=== PATIENT | male | born 1990 | race Asian ===

== ENCOUNTER 2022-02-06 04:34 | Emergency (ER) | payer OTHER, SELFPAY ==
[2022-02-06 05:39] VITALS: BP 140/86; PULSE 88; RESP 17; TEMP 36.8; O2SAT 99; BMI 33.4
--- NOTE | 2022-02-06 11:04 | PC.NURSE ---
ATTEMPTED TO CALL PATIENT INTO ED, NO ANSWER IN WAITING ROOM
--- NOTE | 2022-02-06 11:51 | PC.NURSE ---
SECOND CALL, NO ANSWER IN WAITING ROOM
== END 2022-02-06 11:04 | disposition left against medical advice (07) ==
PROVIDERS: Emergency Provider Emergency Medicine
DX: K59.00 Constipation, unspecified (principal)
CPT/HCPCS: 99281

== ENCOUNTER 2023-02-22 02:08 | Emergency (ER) | payer OTHER, SELFPAY ==
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
[2023-02-22 02:14] VITALS: BP 125/74; PULSE 68; RESP 12; O2SAT 98; BMI 78.3
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
--- NOTE | 2023-02-22 02:22 | PC.NURSE ---
notified PHUC Husain, of pt in room 4
[2023-02-22 02:24] VITALS: RESP 20
[2023-02-22] MEDS: Morphine Sulfate 4 MG/ML CARTRIDGE IVPUSH (02:24)
[2023-02-22] MEDS: 0.9 % Sodium Chloride 1,000 ML 999 ML IVCONT (02:26)
[2023-02-22] MEDS: cefEPime HCl 1 GM in 0.9 % Sodium Chloride 50 ML IV (02:27)
[2023-02-22 02:46] LABS: MANUAL DIFF FLAG NO
[2023-02-22 02:47] LABS: Basophils Absolute Auto 0.1 X10*3/uL (0.0-0.2); Basophils Percent Auto 0.8 % (0-2); Eosinophils Absolute Auto 0.3 X10*3/uL (0.0-0.4); Eosinophils Percent Auto 2.9 % (0-4); Hematocrit 44.2 % (42.0-52.0); Hemoglobin 14.9 g/dl (14.0-18.0); Imm Gran Abs Auto 0.03 X10*3/uL (0.00-0.03); Imm Gran Pct Auto 0.3 % (0.0-0.4); Lymphocytes Percent Auto 44.8 % (20-40); Mean Corpuscular HGB Conc 33.7 g/dl (31.0-36.0); Mean Corpuscular Hemoglobin 29.4 pg (27.0-33.0); Mean Corpuscular Volume 87.2 fL (80.0-98.0); Mean Platelet Volume 9.3 fL (9.4-12.4); Neutrophils Absolute Auto 4.7 x10*3/uL (2.0-8.3); Neutrophils Percent Auto 42.2 % (45-73); Platelet Count 236 X10*3/uL (160-400); Red Blood Count 5.07 X10*6/uL (4.60-5.80); Red Cell Distribution Width 12.2 % (11.0-16.0); White Blood Count 11.1 X10*3/uL (4.8-10.8)
[2023-02-22 02:58] LABS: Anion Gap 14 (12-20); Blood Urea Nitrogen 14 mg/dL (9-16); Calcium 9.3 mg/dL (8.4-10.2); Carbon Dioxide 25 mmol/L (22-29); Chloride 104 mmol/L (96-108); Creatinine Clr Calc Pharmacy 246.9; Estimated Glomerular Filt Rate > 60; Glucose Random 135 mg/dL (60-115); Potassium 3.6 mmol/L (3.3-5.1); Sodium 139 mmol/L (135-145)
--- NOTE | 2023-02-22 03:41 | PC.NURSE ---
Pt requesting something to drink Pt placed on npo per provider Stephen. This RN advised that he could not have anything to drink or eat d/t surgery in the morning. Pt states well that makes no fucking sense. Plan of care ongoing.
== END 2023-02-22 03:54 | disposition left against medical advice (07) ==
PROVIDERS: Emergency Provider Emergency Medicine
DX: S61.431A Puncture wound without foreign body of right hand, initial encounter (principal); M79.641 Pain in right hand; W32.0XXA Accidental handgun discharge, initial encounter; Y93.9 Activity, unspecified; Y92.9 Unspecified place or not applicable; Y99.9 Unspecified external cause status; Z79.899 Other long term (current) drug therapy
CPT/HCPCS: 26720; 36415; 73130; 80048; 85025; 93005; 96374; 96375; 99284; J0692; J2270

== ENCOUNTER 2023-02-22 11:08 | Outpatient (AMB) | payer OTHER, SELFPAY ==
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
== END 2023-02-22 12:21 | disposition home or self-care (01) ==
PROVIDERS: Visit Provider Physician Assistant
DX: S62.511A Displaced fracture of proximal phalanx of right thumb, initial encounter for closed fracture (principal); S61.031A Puncture wound without foreign body of right thumb without damage to nail, initial encounter; W34.00XA Accidental discharge from unspecified firearms or gun, initial encounter
CPT/HCPCS: 26720; 99204

== ENCOUNTER 2023-02-25 10:23 | Day surgery (SDC) | payer OTHER, SELFPAY ==
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
--- NOTE | ~2023-02-25 | FL_ITS ---
EXAMINATION: XR FLUOROSCOPY WITH IMAGES CLINICAL INFORMATION: Foreign body in finger. COMPARISON: Previous right hand x-ray 02/22/2023 TECHNIQUE: Fluoroscopy Supervised By: Dr. Cesia Hawk. Fluoroscopy Time: 88.76 seconds. Cumulative Dose: 2.2212 mGy. DAP: 0.1342 Gycm2. Images: 8. FINDINGS: Fluoroscopy guidance provided for ORIF of comminuted fracture of the proximal phalanx of the thumb. Images demonstrate 3 K wires or pins with improved alignment. Multiple soft tissue foreign bodies. FL/FL guidance in OR IMPRESSION: Fluoroscopy guidance for ORIF of proximal phalanx fracture of the right thumb
--- NOTE | 2023-02-25 10:30 | PC.NURSE ---
Addendum entered by Yazmin Freire RN 02/25/23 10:39: patient admitted to using heroin 3hrs ago. Dr. Hawk and Dr. Hernandez aware. Original Note: patient stating I am not feeling well vomiting and diarrhea episodes x3 prior to arrival. patient drank about 4oz apple juice about 1hr ago . Dr. Hawk aware and will come to bedside to speak with patient.
[2023-02-25 10:35] VITALS: BMI 33.4
[2023-02-25 11:32] LABS: Amphetamine Screen Urine Not Detected (Not Detect); Barbiturates, Urine Not Detected (Not Detect); Benzodiazepines Screen Urine Not Detected (Not Detect); Cannabinoid Screen Urine Not Detected (Not Detect); Cocaine Screen Urine Not Detected (Not Detect); Fentanyl, urine POSITIVE (Not Detect); Opiate Screen Urine POSITIVE (Not Detect); Phencyclidine Screen Urine Not Detected (Not Detect)
[2023-02-25 12:03] VITALS: BP 151/74; PULSE 101; RESP 16; TEMP 36.7; O2SAT 98
[2023-02-25] MEDS: Lactated Ringers 1,000 ML 100 ML IVCONT (12:05)
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
[2023-02-25 15:26] VITALS: BP 129/82; PULSE 97; RESP 18; TEMP 37.6; O2SAT 92
[2023-02-25 15:31] VITALS: BP 114/86; PULSE 90; RESP 18; O2SAT 95
[2023-02-25 15:36] VITALS: BP 126/84; PULSE 77; RESP 18; O2SAT 97
[2023-02-25 15:41] VITALS: BP 151/93; PULSE 82; RESP 18; O2SAT 97
[2023-02-25 15:56] VITALS: BP 166/89; PULSE 89; RESP 18; TEMP 37.2; O2SAT 98
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
== END 2023-02-25 16:13 | disposition home or self-care (01) ==
PROVIDERS: Anesthesiology; Visit Provider Orthopaedic Surgery
PROC: (CPT 26735; principal; 2023-02-25 11:40)
PROC: (CPT 26735; 2023-02-25 11:40)
DX: S62.511B Displaced fracture of proximal phalanx of right thumb, initial encounter for open fracture (principal); W32.0XXA Accidental handgun discharge, initial encounter; Y93.9 Activity, unspecified; Y92.9 Unspecified place or not applicable; Y99.8 Other external cause status; B19.20 Unspecified viral hepatitis C without hepatic coma; I10 Essential (primary) hypertension; R00.2 Palpitations; F11.10 Opioid abuse, uncomplicated; F17.210 Nicotine dependence, cigarettes, uncomplicated
CPT/HCPCS: 26735; 11010; 64450; 80307; J0330; J0690; J1170; J2250; J2765; J2795; J3010

== ENCOUNTER → 2023-02-25 10:23 | Outpatient (BNV) | payer OTHER, SELFPAY | PROVIDERS: Visit Provider Orthopaedic Surgery | DX: S62.511B Displaced fracture of proximal phalanx of right thumb, initial encounter for open fracture (principal); S60.351A Superficial foreign body of right thumb, initial encounter | CPT/HCPCS: 11010; 26735 ==

== ENCOUNTER 2023-03-02 11:16 | Outpatient (REF) | payer OTHER, SELFPAY ==
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
== END 2023-03-02 11:17 | disposition home or self-care (01) ==
LOC: HO.HOSX 11:16
PROVIDERS: Visit Provider Orthopaedic Surgery
DX: M79.641 Pain in right hand (principal)
CPT/HCPCS: 73130

== ENCOUNTER 2023-03-03 13:11 | Outpatient (AMB) | payer OTHER, SELFPAY ==
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
== END 2023-03-03 14:17 | disposition home or self-care (01) ==
PROVIDERS: Visit Provider Orthopaedic Surgery
DX: S62.511B Displaced fracture of proximal phalanx of right thumb, initial encounter for open fracture (principal); S62.501A Fracture of unspecified phalanx of right thumb, initial encounter for closed fracture
CPT/HCPCS: 99024

== ENCOUNTER → 2023-03-03 13:11 | Outpatient (BNVA) | payer OTHER, SELFPAY | PROVIDERS: Visit Provider Orthopaedic Surgery ==

== ENCOUNTER 2023-03-08 12:52 | Outpatient (REF) | payer OTHER, SELFPAY | END 2023-03-08 12:53 | disposition home or self-care (01) | LOC: HO.HOSX 12:52 | PROVIDERS: Visit Provider Physician Assistant | DX: Z13.89 Encounter for screening for other disorder (principal) ==

== ENCOUNTER 2023-03-10 12:20 | Outpatient (REF) | payer OTHER, SELFPAY | END 2023-03-10 12:21 | disposition home or self-care (01) | LOC: HO.HOSX 12:20 | PROVIDERS: Visit Provider Physician Assistant | DX: Z13.89 Encounter for screening for other disorder (principal) ==

== ENCOUNTER 2023-03-12 07:47 | Outpatient (REF) | payer OTHER, SELFPAY | END 2023-03-12 07:48 | disposition home or self-care (01) | LOC: HO.HOSX 07:47 | PROVIDERS: Visit Provider Physician Assistant | DX: Z13.89 Encounter for screening for other disorder (principal) ==

== ENCOUNTER 2023-03-15 13:09 | Outpatient (AMB) | payer OTHER, SELFPAY ==
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
== END 2023-03-15 15:01 | disposition home or self-care (01) ==
PROVIDERS: Visit Provider Orthopaedic Surgery
DX: S62.511B Displaced fracture of proximal phalanx of right thumb, initial encounter for open fracture (principal); S62.501A Fracture of unspecified phalanx of right thumb, initial encounter for closed fracture
CPT/HCPCS: 99024

== ENCOUNTER 2023-03-15 13:09 | Outpatient (REF) | payer OTHER, SELFPAY ==
--- NOTE | ~2023-03-15 | XR_ITS ---
EXAMINATION: XR HAND, RIGHT CLINICAL INFORMATION: Pain COMPARISON: 03/03/2023 and 02/22/2023 TECHNIQUE: PA, lateral, and oblique views of the right hand. FINDINGS: Patient is status post ORIF placement for fixation of comminuted fracture of distal phalanx of right first finger. 3 K wires seen. There are close to anatomical alignment position of multiple fragments of proximal thumb phalanx and there are punctate foreign bodies in the soft tissues. XR/XR hand RT min 3V IMPRESSION: Post surgical changes
== END 2023-03-15 13:10 | disposition home or self-care (01) ==
LOC: HO.HOSX 13:09
PROVIDERS: Visit Provider Orthopaedic Surgery
DX: S62.511D Displaced fracture of proximal phalanx of right thumb, subsequent encounter for fracture with routine healing (principal)
CPT/HCPCS: 73130; 99212

== ENCOUNTER 2023-04-05 08:30 | Outpatient (REF) | payer OTHER, SELFPAY | END 2023-04-05 08:31 | disposition home or self-care (01) | LOC: HO.HOSX 08:30 | PROVIDERS: Visit Provider Physician Assistant | DX: Z13.89 Encounter for screening for other disorder (principal) ==

== ENCOUNTER 2023-04-07 08:30 | Outpatient (REF) | payer OTHER, SELFPAY ==
--- NOTE | ~2023-04-07 | XR_ITS ---
EXAMINATION: XR HAND, RIGHT CLINICAL INFORMATION: Pain. COMPARISON: Prior radiographs, most recently 03/15/2023. TECHNIQUE: PA, lateral, and oblique views of the right hand. FINDINGS: There is bony demineralization, in particular of the thumb. There is stable alignment of an oblique fracture of the proximal phalanx of the thumb. There are intact fixator pins applied to the thumb. No hardware failure or loosening is seen. Multiple radiopaque foreign bodies are redemonstrated in the proximal thumb and lateral wrist soft tissues. XR/XR hand RT min 3V IMPRESSION: There is stable alignment of an oblique fracture of the proximal phalanx of the right thumb status-post ORIF. No significant new callus formation is seen. There is no hardware failure or loosening noted.
== END 2023-04-07 08:31 | disposition home or self-care (01) ==
LOC: HO.HOSX 08:30
PROVIDERS: Visit Provider Physician Assistant
DX: S62.511D Displaced fracture of proximal phalanx of right thumb, subsequent encounter for fracture with routine healing (principal)
CPT/HCPCS: 29085; 73130; 99212

== ENCOUNTER 2023-04-07 13:01 | Outpatient (AMB) | payer OTHER, SELFPAY ==
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
== END 2023-04-07 14:45 | disposition home or self-care (01) ==
PROVIDERS: Visit Provider Physician Assistant
DX: S62.511D Displaced fracture of proximal phalanx of right thumb, subsequent encounter for fracture with routine healing (principal)
CPT/HCPCS: 29085; 99024

== ENCOUNTER 2023-04-28 06:37 | Outpatient (REF) | payer OTHER, SELFPAY | END 2023-04-28 06:38 | disposition home or self-care (01) | LOC: HO.HOSX 06:37 | PROVIDERS: Visit Provider Physician Assistant | DX: Z13.89 Encounter for screening for other disorder (principal) ==

== ENCOUNTER 2023-04-29 06:37 | Outpatient (REF) | payer OTHER, SELFPAY | END 2023-04-29 06:38 | disposition home or self-care (01) | LOC: HO.HOSX 06:37 | PROVIDERS: Visit Provider Physician Assistant | DX: Z13.89 Encounter for screening for other disorder (principal) ==

== ENCOUNTER 2023-05-12 11:42 | Outpatient (REF) | payer OTHER, SELFPAY ==
--- NOTE | ~2023-05-12 | XR_ITS ---
EXAMINATION: XR HAND, RIGHT CLINICAL INFORMATION: Right hand pain. COMPARISON: None available. TECHNIQUE: 2 views of the hand and 2 additional views of the thumb. FINDINGS: 2 pins are seen in the thumb extending through the distal and middle phalanx. There is marked bony demineralization. There is not, as of yet, fracture fragment healing. Multiple radiopaque foreign densities are again noted overlying this region. No new fractures are seen. No bony destructive lesions are seen. XR/XR hand RT min 3V IMPRESSION: 2 pins are seen in the thumb. There is not, as of yet, fracture fragment healing.
== END 2023-05-12 11:43 | disposition home or self-care (01) ==
LOC: HO.HOSX 11:42
PROVIDERS: Visit Provider Physician Assistant
DX: S62.511D Displaced fracture of proximal phalanx of right thumb, subsequent encounter for fracture with routine healing (principal); M79.641 Pain in right hand; W00.9XXD Unspecified fall due to ice and snow, subsequent encounter
CPT/HCPCS: 73130; 99212

== ENCOUNTER 2023-05-12 14:34 | Outpatient (AMB) | payer OTHER, SELFPAY ==
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
== END 2023-05-12 15:58 | disposition home or self-care (01) ==
PROVIDERS: Visit Provider Physician Assistant
DX: S62.511D Displaced fracture of proximal phalanx of right thumb, subsequent encounter for fracture with routine healing (principal); S62.501D Fracture of unspecified phalanx of right thumb, subsequent encounter for fracture with routine healing
CPT/HCPCS: 99024

== ENCOUNTER 2023-06-09 12:12 | Outpatient (REF) | payer OTHER, SELFPAY | END 2023-06-09 12:13 | disposition home or self-care (01) | LOC: HO.HOSX 12:12 | PROVIDERS: Visit Provider Physician Assistant | DX: Z13.89 Encounter for screening for other disorder (principal) ==

== ENCOUNTER 2023-07-25 05:22 | Emergency (ER) | payer SELFPAY ==
--- NOTE | ~2023-07-25 | XR_ITS ---
EXAMINATION: XR ABDOMEN KUB CLINICAL INDICATION: Abdominal pain, constipation. COMPARISON: None available. TECHNIQUE: AP view of the abdomen. FINDINGS: Nondilated bowel gas pattern. Small to moderate volume stool is present throughout the colon, primarily in the ascending colon. No gross evidence of pneumoperitoneum on these supine images. No pathologic calcifications. Osseous structures are normal. No radiodense foreign bodies. XR/XR KUB IMPRESSION: Nondilated bowel gas pattern. Small to moderate stool volume.
[2023-07-25 05:47] VITALS: BP 150/89; PULSE 117; RESP 20; TEMP 36.6; O2SAT 98; BMI 35.0
[2023-07-25 05:47] LABS: Hematocrit 46.8 % (42.0-52.0); Hemoglobin 16.2 g/dl (14.0-18.0); Mean Corpuscular HGB Conc 34.6 g/dl (31.0-36.0); Mean Corpuscular Hemoglobin 29.5 pg (27.0-33.0); Mean Corpuscular Volume 85.2 fL (80.0-98.0); Mean Platelet Volume 9.2 fL (9.4-12.4); Platelet Count 278 X10*3/uL (160-400); Red Blood Count 5.49 X10*6/uL (4.60-5.80); Red Cell Distribution Width 12.4 % (11.0-16.0); White Blood Count 11.6 X10*3/uL (4.8-10.8)
[2023-07-25 06:03] LABS: Alanine Aminotransferase 48 U/L (0-40); Albumin Level 4.8 g/dL (3.5-5.0); Alkaline Phosphatase 107 U/L (39-117); Anion Gap 18 (12-20); Aspartate Amino Transferase 26 U/L (5-37); Bilirubin Total 0.3 mg/dL (0.0-1.0); Blood Urea Nitrogen 14 mg/dL (9-16); Calcium 9.5 mg/dL (8.4-10.2); Carbon Dioxide 23 mmol/L (22-29); Chloride 102 mmol/L (96-108); Creatinine Clr Calc Pharmacy 151.8; Estimated Glomerular Filt Rate > 60; Glucose Random 106 mg/dL (60-115); Potassium 3.4 mmol/L (3.3-5.1); Sodium 140 mmol/L (135-145)
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
--- NOTE | 2023-07-25 06:57 | MHC.EDTECH ---
pt is refusing swab for cov, flu, rsv check. RN Deb aware.
[2023-07-25 07:47] VITALS: BP 127/71; PULSE 82; RESP 15; TEMP 36.9; O2SAT 96
[2023-07-25] MEDS: 0.9 % Sodium Chloride 1,000 ML 999 ML IV (07:52)
[2023-07-25 07:59] LABS: Amphetamine Screen Urine Not Detected (Not Detect); Barbiturates, Urine Not Detected (Not Detect); Benzodiazepines Screen Urine Not Detected (Not Detect); Cannabinoid Screen Urine Not Detected (Not Detect); Cocaine Screen Urine Not Detected (Not Detect); Fentanyl, urine POSITIVE (Not Detect); Opiate Screen Urine POSITIVE (Not Detect); Phencyclidine Screen Urine Not Detected (Not Detect)
[2023-07-25 08:09] LABS: Appearance Urine Clear; Color Urine Yellow; Glucose Urine UA Negative (Negative); Leukocyte Esterase Urine Negative (Negative); Nitrite Urine Negative (Negative); PH 5.5 (5.0-9.0); Specific Gravity - Urine >= 1.030 (1.005-1.025); Urine Blood Negative (Negative); Urine Ketones Negative (Negative); Urine Protein Negative (Neg-Trace)
[2023-07-25] MEDS: Naloxone HCl Nasal TAKE HOME 4 MG SPRAY 8 MG NOSTRILALT (09:08)
[2023-07-25 09:11] VITALS: BP 131/82; PULSE 79; RESP 16; TEMP 37; O2SAT 98
== END 2023-07-25 09:15 | disposition home or self-care (01) ==
PROVIDERS: Emergency Provider Emergency Medicine
DX: K59.00 Constipation, unspecified (principal)
CPT/HCPCS: 36415; 74018; 80053; 80307; 81003; 85027; 96360; 99284

== ENCOUNTER 2023-11-03 11:37 | Outpatient (AMB) | payer OTHER, SELFPAY ==
[2023-11-03 11:42] VITALS: BP 130/80; PULSE 78; TEMP 37.2; O2SAT 98; BMI 35.0
--- NOTE | 2023-11-03 11:42 | AM.OFFWIN_ITS ---
Intake Vital Signs 11/03/23 11:42 Height 5 ft 8 in Weight 230 lb BMI 35.0 BP 130/80 Blood Pressure Location Rt brachial Position Sitting Pulse 78 Pulse Source Pulse Oximeter Temp 98.9 F Temp Source Oral Pulse Oximetry (%) 98 Oxygen Delivery Method Room Air Intake Visit Reasons: EP STD testing Intake Note: pt is here for STD screening, patent states he has been having dark urine and states he has spots on his foot. patient stated he does heroin and is concerned about his health in general. Patient Tobacco Use Status: Current everyday Tobacco user Allergies No Known Allergies [No Known Allergies*] Allergy (Verified 11/03/23 11:42) Do you need a note to return to daycare/school/sports/work: No HPI HPI Comments History of Present Illness Details Patient is a 32-year-old male complaining of multiple things. He states he has had these things happening for years, he states he has been in [facility] and he is also was sexually promiscuous a few years ago but now he has a stable monogamous relationship with his girlfriend. First he states he is concerned he has syphilis, he has a rash on the bottom of his left foot that he states gets worse and becomes fluid-filled bubbles and then goes away and dries up and then flares up again and repeat that cycle. He states this is only on one foot and it does not happen on his hands. He also endorses abdominal pain with some random episodes of diarrhea, he sometimes has pain with urination and has dark urine. He denies any fevers. [facility] Medical History Hepatitis C Heart palpitations History of hypertension Surgical History H/O thumb surgery H/O facial injury Social History Patient Tobacco Use Status: Current everyday Tobacco user Tobacco use type: Cigarette Cigarette Packs Per Day: 1 Cigarettes Per Day: 20.0 Second Hand Smoke Exposure: No Substance Use Type: Heroin Current occupational status: unemployed Current occupation: right hand dominant Review of Systems Const All systems reviewed & are unremarkable except as noted in HPI and below Physical Exam Vital Signs: Last Vital Signs Temp 98.9 F 11/03/23 11:42 Pulse 78 11/03/23 11:42 BP 130/80 11/03/23 11:42 Pulse Ox 98 11/03/23 11:42 Oxygen Delivery Method Room Air 11/03/23 11:42 BMI result Body Mass Index 35.0 Const General: cooperative, healthy appearing, comfortable, no acute distress and well developed Orientation/consciousness: patient oriented x3 Limitations: no limitations Eyes General: appearance normal, both eyes and all related structures Resp Effort & Inspection: normal respiratory effort and able to speak in complete sentences Skin Other: 4 cm x 3 cm cluster of rough, reddish-brown spots on the plantar aspect of the left foot, no vesicular lesions noted. No signs of infection noted. Patient has full range of motion of his ankle, foot and toes, no swelling, no ecchymosis, Sensation intact and 5/5 strength Neuro General: patient oriented x3 Results AMB Urinalysis, Automated UA Leukoctes 0 Jose/uL Last Edit by Aba Patel CMA on 11/03/23 12:47 UA Nitrite Negative Last Edit by Aba Patel CMA on 11/03/23 12:47 UA Urobilinogen 0.2 mg/dL Last Edit by Aba Patel CMA on 11/03/23 12:47 UA Protein 15 mg/dL Last Edit by Aba Patel CMA on 11/03/23 12:47 UA pH 6.0 Last Edit by Aba Patel CMA on 11/03/23 12:47 UA Blood 0 Hipolito/uL Last Edit by Aba Patel CMA on 11/03/23 12:47 UA Specific [place] 1.020 Last Edit by Aba Patel CMA on 11/03/23 12:47 UA Ketone Last Edit by Aba Patel CMA on 11/03/23 12:47 UA Bilirubin 0 mg/dL Last Edit by Aba Patel CMA on 11/03/23 12:47 UA Glucose 0 mg/dL Last Edit by Aba Patel CMA on 11/03/23 12:47 Results Reviewed Results Reviewed: Laboratory Last Values Urine pH (Auto) 6.0 11/03/23 12:46 Specific [place] (Auto) 1.020 11/03/23 12:46 Urine Protein (Auto) 15 mg/dL 07/03/24 12:46 Glucose (UA)(Auto) 0 mg/dL 11/03/23 12:46 Urine Blood (Auto) 0 Hipolito/uL 11/03/23 12:46 Urine Nitrite (Auto) Negative 11/03/23 12:46 Urine Bilirubin (Auto) 0 mg/dL 11/03/23 12:46 Urine Urobilinogen (Auto) 0.2 mg/dL 11/03/23 12:46 Leukocyte Esterase (Auto) 0 Jose/uL 11/03/23 12:46 Assessment & Plan Assessment & Plan (1) Rash of foot: Code(s): R21 - Rash and other nonspecific skin eruption Plan: Will get HIV, syphilis, gonorrhea and chlamydia. UA negative but + for protein and keytones. If all are negative, recommended he follow up with his PCP for further workup. He says he thinks he picked Dr. Morin as his PCP through [facility] but he is not sure. He is going to try to get an appointment with him as soon as possible, which I would highly recommend. (2) Has multiple sexual partners: Code(s): Z91.89 - Other specified personal risk factors, not elsewhere classified Plan: See above (3) Abdominal pain: Code(s): R10.9 - Unspecified abdominal pain Qualifiers: Abdominal location: lower abdomen, unspecified Qualified Code(s): R10.30 - Lower abdominal pain, unspecified Plan: See above Plan Patient will call on November 04 for test results Orders: Orders Syphilis Screen Today R21 - Rash and other nonspecific skin eruption CT NG by PCR Today R10.9 - Unspecified abdominal pain, R21 - Rash and other nonspecific skin eruption, Z91.89 - Other specified personal risk factors, not elsewhere classified UA CC w/rflx Micro + Cult Today R10.9 - Unspecified abdominal pain HIV Ab/Ag Today R10.9 - Unspecified abdominal pain, Z91.89 - Other specified personal risk factors, not elsewhere classified AMB Urinalysis Automated Today Z13.9 - Encounter for screening, unspecified Coding Level of Care Code New Pt Level 4 (06682) Diagnoses Rash of foot R21 Has multiple sexual partners Z91.89 Lower abdominal pain R10.30 Abdominal location: lower abdomen, unspecified
== END 2023-11-03 12:52 | disposition home or self-care (01) ==
PROVIDERS: Visit Provider Physician Assistant
DX: R21 Rash and other nonspecific skin eruption (principal); Z91.89 Other specified personal risk factors, not elsewhere classified; R10.30 Lower abdominal pain, unspecified
CPT/HCPCS: 81003; 99204

== ENCOUNTER 2023-11-03 12:17 | Outpatient (REF) | payer OTHER, SELFPAY ==
[2023-11-03 17:01] LABS: Appearance Urine Cloudy; Color Urine Yellow; Glucose Urine UA Negative (Negative); Leukocyte Esterase Urine Negative (Negative); Nitrite Urine Negative (Negative); Specific Gravity - Urine 1.025 (1.005-1.025); Urine Blood Negative (Negative); Urine Ketones Negative (Negative); Urine Protein Trace mg/dL (Neg-Trace)
[2023-11-04 05:47] LABS: CT PCR NOT DETECTED (Not Detect.); NG PCR NOT DETECTED (Not Detect.)
== END 2023-11-03 12:18 | disposition home or self-care (01) ==
LOC: HO.LAB 12:17
PROVIDERS: Visit Provider Physician Assistant
DX: R10.9 Unspecified abdominal pain (principal); R21 Rash and other nonspecific skin eruption; Z91.89 Other specified personal risk factors, not elsewhere classified
CPT/HCPCS: 81003; 87491; 87591

== ENCOUNTER 2023-11-03 12:28 | Outpatient (REF) | payer OTHER, SELFPAY ==
[2023-11-05 03:36] LABS: Syphilis Screen Nonreactive (Nonreactive)
[2023-11-05 03:56] LABS: HIV AB/AG Nonreactive (Nonreactive); HIV Num 1 0.05 S/CO (0.00-0.99)
== END 2023-11-03 12:29 | disposition home or self-care (01) ==
LOC: HO.HMGCLDS 12:28
PROVIDERS: Visit Provider Physician Assistant
DX: Z11.4 Encounter for screening for human immunodeficiency virus [HIV] (principal); R10.9 Unspecified abdominal pain; R21 Rash and other nonspecific skin eruption; Z91.89 Other specified personal risk factors, not elsewhere classified
CPT/HCPCS: 36415; 86780; 87389

== ENCOUNTER 2023-11-04 16:53 | Emergency (ER) | payer OTHER, SELFPAY ==
--- NOTE | ~2023-11-04 | US_ITS ---
EXAMINATION: US SCROTUM CLINICAL INFORMATION: testicular mass/swelling COMPARISON: None available. TECHNIQUE: A sonogram of the scrotum was performed assessing cosby-scale appearance and color Doppler flow. Spectral Doppler analysis of the arterial and venous flow were performed in the testes bilaterally. FINDINGS: RIGHT: Right testicle measures 4 x 2.3 x 2.6 cm, volume 12.7 mL. No focal testicular parenchymal lesions are visualized. Spectral Doppler analysis of the arterial and venous flow is normal in the right testis. Right epididymal head is normal in size. No right hydrocele or varicocele is seen. Right epididymal Doppler flow is normal. LEFT: Left testicle measures 4.2 x 2.1 x 2.8 cm, volume 13.1 mL. No focal testicular parenchymal lesions are visualized. Spectral Doppler analysis of the arterial and venous flow is normal in the left testis. Left epididymal head is normal in size. Small left hydrocele and small varicocele is seen. Left epididymal Doppler flow is normal. US/US scrotum doppler IMPRESSION: Small left hydrocele and small left varicocele. Otherwise unremarkable exam.
--- NOTE | ~2023-11-04 | US_ITS ---
EXAMINATION: US SCROTUM CLINICAL INFORMATION: testicular mass/swelling COMPARISON: None available. TECHNIQUE: A sonogram of the scrotum was performed assessing cosby-scale appearance and color Doppler flow. Spectral Doppler analysis of the arterial and venous flow were performed in the testes bilaterally. FINDINGS: RIGHT: Right testicle measures 4 x 2.3 x 2.6 cm, volume 12.7 mL. No focal testicular parenchymal lesions are visualized. Spectral Doppler analysis of the arterial and venous flow is normal in the right testis. Right epididymal head is normal in size. No right hydrocele or varicocele is seen. Right epididymal Doppler flow is normal. LEFT: Left testicle measures 4.2 x 2.1 x 2.8 cm, volume 13.1 mL. No focal testicular parenchymal lesions are visualized. Spectral Doppler analysis of the arterial and venous flow is normal in the left testis. Left epididymal head is normal in size. Small left hydrocele and small varicocele is seen. Left epididymal Doppler flow is normal. US/US scrotum IMPRESSION: Small left hydrocele and small left varicocele. Otherwise unremarkable exam.
--- NOTE | ~2023-11-04 | XR_ITS ---
EXAMINATION: XR ABDOMEN KUB CLINICAL INDICATION: Constipation COMPARISON: 07/25/2023 TECHNIQUE: AP view of the abdomen. FINDINGS: The bowel gas pattern is normal with no evidence of ileus or obstruction. No unusual soft tissue calcifications are noted. The bones are unremarkable. XR/XR KUB IMPRESSION: Unremarkable examination. No evidence of bowel obstruction or significant constipation
[2023-11-04 17:06] VITALS: BP 136/73; PULSE 91; RESP 18; TEMP 37.1; O2SAT 98; BMI 33.0
--- NOTE | 2023-11-04 17:13 | ED.GENADULT ---
HPI - General Adult General Chief complaint: Urogenital-Male Stated complaint: testicular mass, frequent urination, feeling unwel Time Seen by Provider: 11/04/23 17:22 History of Present Illness ED Provider: Megan ESPINOZA narrative: The patient is a 32-year-old male who comes to the emergency room because he says that he has been feeling very unwell for the last 2-3 days. He is very vague about the symptoms he is experiencing. He says that he just feels that his whole body is falling apart. He has not had fever. He says that he uses heroin which he takes nasally. He says that he feels like he is dope sick but he knows that he has not dope sick because he used heroin just before checking into the emergency room. He says that he has felt unwell for about 2-3 days. He says he has also been concerned that he might have sexually transmitted diseases including syphilis. He says that he had outpatient testing for syphilis at an urgent care center yesterday. He has awaiting the results. He says that he is recently become established with a primary care doctor but has not yet seen them. He has an appointment in 8 days on November 11. The patient says that he has not had a good bowel movement in a long time. He says he has only occasional liquid stools and he is concerned that he is constipated by narcotics. The patient says that when he was a child, at about age 9 or 11, [facility] some kind of blood problem. He does not have any more specifics about this. He also says that about 10 years ago he was seen at urology clinic for testicular masses. He says that he did not follow up as originally planned. He is concerned that he might have advanced testicular cancer. The patient says that the cancer clinic was in [place]. He thinks the urology clinic was in [place], [place]. Related Data Home Medications ?Medication ?Instructions ?Recorded ?Confirmed No Known Home Meds 04/07/23 04/07/23 Allergies Allergy/AdvReac Type Severity Reaction Status Date / Time No Known Allergies Allergy Verified 11/04/23 17:10 [No Known Allergies*] Review of Systems Review of Systems: Yes all other systems are reviewed and are negative [facility] Past Medical History Medical History Hepatitis C Heart palpitations History of hypertension Surgical History H/O thumb surgery H/O facial injury Social History Social History Patient Tobacco Use Status: Current everyday Tobacco user Tobacco use type: Cigarette Cigarette Packs Per Day: 1 Cigarettes Per Day: 20.0 Smoked in Last 30 Days: Yes Second Hand Smoke Exposure: No Use of substances other than those prescribed or required for medical reasons: Yes Substance Use Type: Heroin Advance Directives: No Advance Directives Information Provided: No Current occupational status: unemployed Current occupation: right hand dominant Physical Exam ED Vital Signs: Vital Signs - 24 hr 11/04/23 17:06 Temperature 98.7 F Pulse Rate 91 Respiratory Rate 18 Blood Pressure 136/73 Pulse Oximetry 98 Oxygen Delivery Method Room Air BMI result Body Mass Index 33.0 Const Other: The patient is awake and alert. He looks pale and slightly chronically ill and slightly unkempt. He does not appear obviously acutely ill however. HENMT Other: Face is symmetrical. Mucous membranes moist. Eyes Other: Pupils are round equal, conjunctivae clear Neck Other: Moving his neck easily, no adenopathy Resp Effort & Inspection: normal respiratory effort Auscultation: clear to auscultation bilaterally Cardio Rate: regular rate Rhythm: regular rhythm Heart sounds: S1 normal heart sound present and S2 normal heart sound present GI Other: Abdomen is soft and does not seem obviously tender. Other: The patient has right testicular tenderness. No obvious masses appreciated on either testicle. No penile discharge Skin Other: Skin is pale and dry Neuro Other: The patient is awake and alert with a normal mental status. Cranial nerves are grossly intact. He moves his extremities normally. Extrem Other: No peripheral edema. Course Course Course Narrative: RME: Done by STEFAN Horvath. 32 yold male presents to the ED for bilateral testicular maass/swelling, faftigue, and feeling sick. labs and testulcar US ordered. Physical exam to be done ED procider Medical Decision Making Medical Decision Making MDM Narrative: The patient is a 32-year-old who seems to have multiple medical concerns and who has very nonspecific symptoms of feeling very unwell. He describes having concerns of cancer when a child. He also describes having concerns of possible testicular cancer in his early 20s. The patient's vital signs are unremarkable. His physical exam is unremarkable. An ultrasound of his scrotum shows hydroceles but no other concerning findings. He was concerned about constipation. Plain films of his abdomen do not suggest significant constipation. His labs do not suggest any serious systemic process. I did my best to reassure the patient. I think the patient is safe for discharge to follow up with his new primary care doctor on November 11. The patient also requested the name of the urology office to address his complaint of urinary frequency which has bothered him for many years. Lab Data 11/04/23 17:24 11/04/23 17:24 Labs: Lab Results 11/04/23 11/04/23 Range/Units 17:24 18:01 WBC 12.2 H (4.8-10.8) X10*3/uL RBC 5.44 (4.60-5.80) X10*6/uL Hgb 16.2 (14.0-18.0) g/dl Hct 46.7 (42.0-52.0) % MCV 85.8 (80.0-98.0) fL MCH 29.8 (27.0-33.0) pg MCHC 34.7 (31.0-36.0) g/dl RDW 12.6 (11.0-16.0) % Plt Count 276 (160-400) X10*3/uL MPV 9.9 (9.4-12.4) fL Immature Gran % (Auto) 1.0 H (0.0-0.4) % Neut % (Auto) 79.6 H (45-73) % Lymph % (Auto) 15.2 L (20-40) % [place] % (Auto) 3.9 (2-11) % Eos % (Auto) 0.1 (0-4) % Baso % (Auto) 0.2 (0-2) % Lymph # (Auto) 1.9 (1.2-4.9) X10*3/uL [place] # (Auto) 0.5 (0.1-1.2) X10*3/uL Eos # (Auto) 0.0 (0.0-0.4) X10*3/uL Baso # (Auto) 0.0 (0.0-0.2) X10*3/uL Abs Immat Gran (auto) 0.12 H (0.00-0.03) X10*3/uL Absolute Neuts (auto) 9.7 H (2.0-8.3) x10*3/uL Absolute Nucleated RBC 0.000 (0.0-0.012) X10*3/uL Nucleated RBC % (auto) 0.0 (0.0-0.2) /100WBC Sodium 140 (135-145) mmol/L Potassium 3.7 (3.3-5.1) mmol/L Chloride 103 (96-108) mmol/L Carbon Dioxide 26 (22-29) mmol/L Anion Gap 15 (12-20) BUN 10 (9-16) mg/dL Creatinine 0.85 (0.5-1.4) mg/dL Estim Creat Clear Calc 140.7 Estimated GFR > 60 Random Glucose 118 H (60-115) mg/dL Calcium 9.5 (8.4-10.2) mg/dL Total Bilirubin 0.3 (0.0-1.0) mg/dL AST 14 (5-37) U/L ALT 19 (0-40) U/L Alkaline Phosphatase 93 (39-117) U/L C-Reactive Protein 0.12 (< or = 0.50) mg/dL Total Protein 8.0 (6.5-8.0) g/dL Albumin 4.8 (3.5-5.0) g/dL Urine Color Dark Yellow Urine Appearance Clear Urine pH 6.0 (5.0-9.0) Ur Specific [place] >= 1.030 H (1.005-1.025) Urine Protein 30 (1+) H (Neg-Trace) mg/dL Urine Glucose (UA) Negative (Negative) mg/dL Urine Ketones Trace (Negative) mg/dL Urine Blood Negative (Negative) Urine Nitrite Negative (Negative) Ur Leukocyte Esterase Negative (Negative) Urine RBC 0-2 (0-2) /HPF Urine WBC 0-5 (0-5) /HPF Ur Squamous Epith Cells 0-2 (0-2) /HPF Urine Bacteria None Seen (None Seen) Hyaline Casts 3-5 (0-2) /LPF Discharge Plan Discharge Clinical Impression: Fatigue, Urinary frequency Patient Disposition: Home, Self-Care Additional Instructions: Your testing today is reassuring. I am not finding a suggestion of any significantly dangerous process. Please plan on keeping your appointment on November 11 with your new medical doctor. I have provided the name and number of two urology practices. Dr. Galvez is a urologist associated with this [facility]. [facility] as another urology group you may try if Dr. Galvez's office does not accept your insurance. Return to the emergency room if worse. Prescriptions: No Action No Known Home Meds Referrals: [facility] [Provider Group] (urinary frequency) Jaylen Galvez MD [Physician] - (urinary frequency) Jaime Hooks FNP-SARY [Nurse Practitioner] - (multiple concerns) Print Language: Bruneian
[2023-11-04 17:28] LABS: MANUAL DIFF FLAG NO
[2023-11-04 17:44] LABS: Alanine Aminotransferase 19 U/L (0-40); Albumin Level 4.8 g/dL (3.5-5.0); Alkaline Phosphatase 93 U/L (39-117); Anion Gap 15 (12-20); Aspartate Amino Transferase 14 U/L (5-37); Bilirubin Total 0.3 mg/dL (0.0-1.0); Blood Urea Nitrogen 10 mg/dL (9-16); Calcium 9.5 mg/dL (8.4-10.2); Carbon Dioxide 26 mmol/L (22-29); Chloride 103 mmol/L (96-108); Creatinine Clr Calc Pharmacy 140.7; Estimated Glomerular Filt Rate > 60; Glucose Random 118 mg/dL (60-115); Potassium 3.7 mmol/L (3.3-5.1); Sodium 140 mmol/L (135-145)
[2023-11-04 17:51] LABS: Basophils Percent Auto 0.2 % (0-2); Eosinophils Percent Auto 0.1 % (0-4); Hematocrit 46.7 % (42.0-52.0); Hemoglobin 16.2 g/dl (14.0-18.0); Imm Gran Abs Auto 0.12 X10*3/uL (0.00-0.03); Lymphocytes Absolute Auto 1.9 X10*3/uL (1.2-4.9); Lymphocytes Percent Auto 15.2 % (20-40); Mean Corpuscular HGB Conc 34.7 g/dl (31.0-36.0); Mean Corpuscular Hemoglobin 29.8 pg (27.0-33.0); Mean Corpuscular Volume 85.8 fL (80.0-98.0); Mean Platelet Volume 9.9 fL (9.4-12.4); Monocytes Absolute Auto 0.5 X10*3/uL (0.1-1.2); Monocytes Percent Auto 3.9 % (2-11); Neutrophils Absolute Auto 9.7 x10*3/uL (2.0-8.3); Neutrophils Percent Auto 79.6 % (45-73); Platelet Count 276 X10*3/uL (160-400); Red Blood Count 5.44 X10*6/uL (4.60-5.80); Red Cell Distribution Width 12.6 % (11.0-16.0); White Blood Count 12.2 X10*3/uL (4.8-10.8)
[2023-11-04 18:08] LABS: Appearance Urine Clear; Color Urine Dark Yellow; Glucose Urine UA Negative (Negative); Leukocyte Esterase Urine Negative (Negative); Nitrite Urine Negative (Negative); Specific Gravity - Urine >= 1.030 (1.005-1.025); UMIC TRIGGER UACC YES; Urine Blood Negative (Negative); Urine Ketones Trace mg/dL (Negative); Urine Protein 30 (1+) mg/dL (Neg-Trace)
--- NOTE | 2023-11-04 18:10 | PC.NURSE ---
pt is alert and oriented, skin pwd, respirations even and unlabored, pt reports bilateral testicular pain that has been going on for years/ reports was told he has testicular mass but has not been following up with specialists, but the last couple days i feel like i am going to pt reports having testicular and lower abd/pelvis discomfort and urinary urgency/frequency, feels like he is not emptying his bladder when he voids.
[2023-11-04 18:19] LABS: C Reactive Protein 0.12 mg/dL (< or = 0.50)
[2023-11-04 18:21] LABS: Bacteria Urine None Seen (None Seen); RBC Urine 0-2 /HPF (0-2); Squamous Epithelial Cell Urine 0-2 /HPF (0-2); WBC Urine 0-5 /HPF (0-5)
[2023-11-04 19:28] VITALS: BP 136/73; PULSE 91; RESP 18; TEMP 37.1; O2SAT 98
[2023-11-05 04:48] LABS: CT PCR NOT DETECTED (Not Detect.); NG PCR NOT DETECTED (Not Detect.)
== END 2023-11-04 19:29 | disposition home or self-care (01) ==
PROVIDERS: Physician Assistant; Emergency Provider Emergency Medicine
DX: R35.0 Frequency of micturition (principal); R53.83 Other fatigue; N50.82 Scrotal pain; R10.2 Pelvic and perineal pain; Z79.899 Other long term (current) drug therapy
CPT/HCPCS: 36415; 74018; 76870; 80053; 81001; 85025; 86140; 87491; 87591; 93975; 99284

== ENCOUNTER 2023-11-12 10:39 | Outpatient (AMB) | payer OTHER, SELFPAY ==
--- NOTE | 2023-11-12 10:57 | A.OFFPC_ITS ---
Vital Signs 11/12/23 10:58 Height 5 ft 8 in Weight 214 lb 6 oz BMI 32.6 BP 110/70 Blood Pressure Location Lt brachial Position Sitting Pulse 71 Pulse Source Pulse Oximeter Temp 98.4 F Temp Source Oral Pulse Oximetry (%) 96 Oxygen Delivery Method Room Air Intake Visit Reasons: est care/ follow up walk in [facility] Intake Note: New patient visit [employer] Required: No Allergies No Known Allergies [No Known Allergies*] Allergy (Verified 11/12/23 10:57) Tobacco use date assessed: 11/12/23 Dental Screening Dental Screen Date: 11/12/23 Did you have a dental visit in the last 12 months?: Yes Did you have a dental problem in the last 6 months where you did not have access to dental care?: No Was dental information given to patient?: Patient has dentist HPI HPI Comments History of Present Illness Details This is a 32-year-old male with a past medical history of heroin use who presents to [facility]. He was seen at the walk-in on 11/03/2023 with multiple concerns. He was worried about having syphilis because of a rash on the bottom of his left foot for two years. There are bubbles that itch and break open and dry out. He had negative screening for STIs. 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 He says his feet sweat at all. He tried a topical antifungal cream, but it didn't really help. He reported dark urine. Urinalysis was positive for 30+ protein and high specific gravity. Patient says he is always dehydrated due to heroin, smoking and not drinking enough water. KUB normal 11/04/2023. Scrotal ultrasound showed a small left hydrocele and small left varicocele 11/04/2023. He was referred to Urology. A he has a appointment coming up in December. He reported episodes of abdominal pain and diarrhea intermittently for years that would get better when he uses heroin. For the past week he's had 2-3 episodes of diarrhea daily, but he says this is better today. Denies family history colon cancer. He is smoker. Denies blood in stools or vomiting. Denies nausea, but he says he is never nauseous when he uses heroin. He gets intermittent sharp pains in his lower abdomen mostly on the left side. He feels that these symptoms may be related to heroin use, but he has a sister who has an intestinal issue. He thought it might be Crohn's. Patient says he completed treatment for hepatitis-C infection 6 months ago at [facility]. Patient denies depression or anxiety. Currently using heroin on a daily basis. Patient has gone to detox many times. States he tried methadone and Suboxone. He is waiting for another product to be legalized in the [place] that you can only get in [place] in [place]. ROS: Constitutional: No unexplained weight loss, fever, chills, fatigue or night sweats. Genitourinary: No hematuria, dysuria or frequency. Neurologic: No headache, dizziness, syncope Psychiatric: No depression or anxiety. No SI/HI. Physical exam: Constitutional: Alert, in no distress. Neck: Supple, Full range of motion. No lymphadenopathy. Respiratory: Clear to auscultation. Cardiovascular: S1 S2 regular. No murmurs Gastrointestinal: Abdomen soft, non-tender, non-distended. Normal bowel sounds. No palpable masses. Neurologic: No focal neurological deficits. Skin: Patient does not have blisters on his foot currently, but there is dry, flaking skin from the last break out. Psychiatric: Normal mood and affect [facility] Medical History (Updated 11/12/23 @ 13:42 by STEFAN Max) Dyshidrotic eczema Rash of both feet Rash of foot Diarrhea Heroin use History of hepatitis C Hepatitis C Heart palpitations History of hypertension Surgical History H/O thumb surgery H/O facial injury Family History (Updated 11/12/23 @ 11:04 by Deirdre Canada CMA) Father Skin cancer Mother Breast cancer Other FH: mental illness Substance use Social History (Updated 11/12/23 @ 12:22 by Deirdre Canada CMA) Patient Tobacco Use Status: Current everyday Tobacco user Tobacco use type: Cigarette Cigarette Packs Per Day: 1 Cigarettes Per Day: 20.0 e-Cigarette/Vaping Use: Never Used Second Hand Smoke Exposure: No Use of substances other than those prescribed or required for medical reasons: Yes Substance Use Type: Heroin service: Yes Current occupational status: unemployed Current occupation: right hand dominant Cognitive needs: No Hearing needs: No Vision needs: No Questionnaire PHQ-9 Over the last 2 weeks, how often have you been bothered by any of the following problems? 1. Little interest or pleasure in doing things: more than half the days 2. Feeling down, depressed, or hopeless: several days 3. Trouble falling or staying asleep, or sleeping too much: several days 4. Feeling tired or having little energy: more than half the days 5. Poor appetite or overeating: several days 6. Feeling bad about yourself - or that you are a failure or have let yourself or your family down: several days 7. Trouble concentrating on things, such as reading the newspaper or watching television: several days 8. Moving or speaking so slowly that other people could have noticed. Or the opposite - being so fidgety or restless that you have been moving around a lot more than usual: not at all 9. Thoughts that you would be better off or of hurting yourself in some way: not at all Total score: 9 Depression Screening Interpretation: Positive Depression Screening Done: Yes 27223 - PHQ-9 Billing: Yes Source: Developed by Drs. Isaca Hanley, Elizabeth Nolasco, Arpit Vale and colleagues, with an educational kimberlee from [employer]. Thrive Questionnaire Date Thrive assessed: 11/12/23 I am a: Patient What is your living situation today?: I have a steady place to live Within the past 12 months, did the food you bought not last and you didn't have the money to get more?: Never true Within the past 12 months, did you worry whether your food would run out before you got money to buy more?: Never true Do you have trouble paying for medicines?: No Do you have trouble getting transportation to medical appointments?: No Do you have trouble paying your heating and electricity bill?: No Do you have trouble taking care of your child, family member or friend?: No Do you have trouble with day-to-day activities such as bathing, preparing meals, shopping, managing finances, etc.?: No Are you currently unemployed and looking for a job?: No Are you interested in more education?: No Please select the resources that you would like help with: None Currently or been in a relationship where the following occur: No concerns reported THRIVE Score: 0 AUDIT C Alcohol Use Questionnaire (AUDIT-C) 1. How often do you have a drink containing alcohol?: Never 3. How often do you have six or more drinks on one occasion?: Never Total Score: 0 ADDIS-7 AMB Questionnaire ADDIS-7 Date ADDIS - 7 assessed: 11/12/23 Feeling nervous, anxious, or on edge: 0 = Not at all Not being able to stop or control worryin = Not at all Worrying too much about different things: 1 = Several days Trouble relaxin = Not at all Being so restless that it is hard to sit still: 1 = Several days Becoming easily annoyed or irritable: 0 = Not at all Feeling afraid as if something awful might happen: 1 = Several days Total ADDIS-7 score (0-4 normal; 5-9 mild; 10-14 moderate; 15-21 severe): 3 Source: Developed by Drs. Isaac Hanley, Elizabeth Nolasco, Arpit Vale and colleagues, with an educational kimberlee from [employer]. ADDIS-7 Assessment Billing ADDIS-7 Assessment Tool: ADDIS-7 Assessment 51147 Physical exam (Primary Care) Vital Signs: Last Vital Signs Temp 98.4 F 11/12/23 10:58 Pulse 71 11/12/23 10:58 BP 110/70 11/12/23 10:58 Pulse Ox 96 11/12/23 10:58 Oxygen Delivery Method Room Air 11/12/23 10:58 BMI result Body Mass Index 32.6 Tobacco/Smoking Status: Tobacco use Status Tobacco use date assessed 11/12/23 11/12/23 10:59 Patient Tobacco Use Status Current everyday Tobacco 11/12/23 10:59 Tobacco use type Cigarette 11/12/23 10:59 e-Cigarette/Vaping Use Never Used 11/12/23 10:59 PHQ-9: PHQ-9 Score PHQ-9: Total score 9 11/12/23 12:23 Depression Screening Interpretation: Positive Thrive Assessment: Date of Thrive Assessment Date Thrive assessed 11/12/23 11/12/23 12:23 Currently or been in a relationship where the following occur: No concerns r eported Assessment and Plan Assessment & Plan (1) Heroin use: Code(s): F11.90 - Opioid use, unspecified, uncomplicated (2) History of hepatitis C: Code(s): Z86.19 - Personal history of other infectious and parasitic diseases (3) Abdominal pain: Code(s): R10.9 - Unspecified abdominal pain Qualifiers: Abdominal location: lower abdomen, unspecified Qualified Code(s): R10.30 - Lower abdominal pain, unspecified (4) Diarrhea: Code(s): R19.7 - Diarrhea, unspecified Qualifiers: Diarrhea type: unspecified type Qualified Code(s): R19.7 - Diarrhea, unspecified (5) Dyshidrotic eczema: Code(s): L30.1 - Dyshidrosis [pompholyx] Plan The patient is not interested in referrals for substance abuse or mental health at this time. His GI symptoms may be due to IBS, lactose intolerance, inflammatory bowel disease, but heroin use is likely at least contributing to symptoms. Refer to Gastroenterology for ongoing GI symptoms. Check stool studies. Check TSH. Recommended 2 week trial of lactose avoidance and then reintroducing to see if it impacts symptoms. Patient says he has tried to remove gluten, and he did not notice a difference in symptoms. Awaiting transfer records. Per patient he was treated for hep C at [facility]. Check viral load. The rash on his foot is most consistent with dyshidrotic eczema. Testing for syphilis was negative. Supportive measures reviewed. Prescribed Lotrisone. Use twice daily for 7-14 days as needed for recurrence. Defers referral to Dermatology. Follow up in 3 months. Orders: Orders Lipid Panel Today R10.30 - Lower abdominal pain, unspecified, Z13.6 - Encounter for screening for cardiovascular disorders TSH reflex Free T4 Today E66.9 - Obesity, unspecified, R10.30 - Lower abdominal pain, unspecified Hepatitis C Viral Load Today Z86.19 - Personal history of other infectious and parasitic diseases GI Panel Today R10.30 - Lower abdominal pain, unspecified, R19.7 - Diarrhea, unspecified Referrals Gastroenterology Referral R10.30 - Lower abdominal pain, unspecified, R19.7 - Diarrhea, unspecified Medications: New clotrimazole-betamethasone 1-0.05 % 1 appl topical BID 14 days 45 grams 3RF Coding Level of Care Code Est Pt Level 4 (50138) Complex EM visit Add On G2211 Diagnoses Heroin use F11.90 History of hepatitis C Z86.19 Lower abdominal pain R10.30 Abdominal location: lower abdomen, unspecified Diarrhea, unspecified type R19.7 Diarrhea type: unspecified type Dyshidrotic eczema L30.1 Additional Codes ADDIS-7 Assessment Billing - ADDIS-7 Assessment Tool: ADDIS-7 Assessment 89890 ([id number])
[2023-11-12 10:58] VITALS: BP 110/70; PULSE 71; TEMP 36.9; O2SAT 96; BMI 32.6
== END 2023-11-12 11:36 | disposition home or self-care (01) ==
PROVIDERS: PCP Physician Assistant Medical; Visit Provider Physician Assistant Medical
DX: R10.30 Lower abdominal pain, unspecified (principal); F11.90 Opioid use, unspecified, uncomplicated; Z86.19 Personal history of other infectious and parasitic diseases; R19.7 Diarrhea, unspecified; L30.1 Dyshidrosis [pompholyx]
CPT/HCPCS: 99214; G2211

== ENCOUNTER 2024-02-18 00:09 | Emergency (ER) | payer OTHER, SELFPAY ==
[2024-02-18 00:18] VITALS: BP 132/69; PULSE 65; RESP 18; TEMP 36.7; O2SAT 100; BMI 30.6
--- NOTE | 2024-02-18 00:31 | ED_ITS ---
HPI - Abdominal Pain General Chief Complaint: Abdominal Pain Stated Complaint: impacted stool Time Seen by Provider: 02/18/24 00:29 Source: patient Mode of arrival: ambulatory Limitations: no limitations History of Present Illness ED Provider: Dr. Juni Negrete HPI narrative: 33-year-old male with a history of opiate use disorder (5-10 bags of intranasal heroin daily) who presents emergency department for evaluation constipation with no bowel movement x3 days, abdominal distention and abdominal pain. Patient states he has had constipation in the past secondary to his opiate use but states that this constipation feels worse. He states that he has had no bowel movement in 3 days in his last bowel movement was small and orange. He states that he was having lower abdominal pain and he points to his left lower quadrant when asked to localize the pain. States the pain is intermittent and it feels like cramping like he has to move his bowels. He denied fever, chills, nausea, vomiting. Related Data Previous Rx's ?Medication ?Instructions ?Recorded clotrimazole-betamethasone 1 1 appl topical BID 14 days #45 11/12/23 %-0.05 % topical cream grams Allergies Allergy/AdvReac Type Severity Reaction Status Date / Time No Known Allergies Allergy Verified 02/18/24 00:25 [No Known Allergies*] Review of Systems Review of Systems Yes all other systems are reviewed and are negative PMFSH Past Medical History Medical History (Updated 02/18/24 @ 03:04 by Juni Negrete MD) Dyshidrotic eczema Rash of both feet Rash of foot Diarrhea Heroin use History of hepatitis C Hepatitis C Heart palpitations History of hypertension Surgical History H/O thumb surgery H/O facial injury Family History Family History (Updated 11/12/23 @ 11:04 by Deirdre Canada CMA) Father Skin cancer Mother Breast cancer Other FH: mental illness Substance use Social History Social History (Updated 11/12/23 @ 12:22 by Deirdre Canada CMA) Alcohol intake: current Alcohol intake frequency: a few times a month Patient Tobacco Use Status: Current everyday Tobacco user Tobacco use type: Cigarette Cigarette Packs Per Day: 1 Cigarettes Per Day: 20.0 Smoked in Last 30 Days: Yes e-Cigarette/Vaping Use: Never Used Second Hand Smoke Exposure: No Use of substances other than those prescribed or required for medical reasons: No Substance Use Type: Heroin Any prior treatment program specific to substance use: No Advance Directives: No Advance Directives Information Provided: No service: Yes Current occupational status: unemployed Current occupation: right hand dominant Cognitive needs: No Hearing needs: No Vision needs: No Physical Exam ED Vital Signs: Vital Signs - 24 hr 02/18/24 00:18 02/18/24 02:15 Temperature 98.1 F 98.1 F Pulse Rate 65 57 Respiratory Rate 18 16 Blood Pressure 132/69 122/64 Pulse Oximetry 100 98 Oxygen Delivery Method Room Air Room Air BMI result Body Mass Index 30.6 Vital signs were normal Exam: General: Awake, alert in no distress Head: Normocephalic, atraumatic EENT: PERRL, Lids normal, sclera normal, conjunctiva normal, nose normal , ears normal, throat without erythema or exudates Neck: Supple, no adenopathy Lung: breath sounds symmetric, no wheezing, rales or rhonchi Chest: symmetric movement, nontender Heart: regular rate and rhythm, normal S1, S2 no murmurs or rubs Abdomen: soft, non-tender, nondistended, normal bowel sounds Rectal: No stool in the rectal vault Back: no vertebral tenderness, no CVAT Extremities: no deformities, moves all extremities symmetrically Neuro: Awake, alert, oriented, normal speech, cranial nerves intact, moves all extremities symmetrically Psych: Pleasant, cooperative Medical Decision Making Medical Decision Making MDM Narrative: 33-year-old male with a history of daily intranasal opiate use who presents emergency department for evaluation of constipation with no bowel movement x3 days, lower abdominal pain with no nausea, vomiting, fever or chills. Patient states he has had similar constipation in the past. Vital signs were normal. Physical examination revealed no abdominal tenderness. Rectal exam revealed no stool in the rectal vault. Differential diagnosis: ?Includes but is not limited to constipation, opiate induced constipation, bowel obstruction Patient was initially treated with the following: Soapsuds enema Course: 03:02 Patient did receive a soapsuds enema however he did not want to wait for results and I was informed by nursing staff that the patient left before he can be re- evaluated by me. Admission/Observation Consideration of admission/observation: Escalation of care including admission/observation considered (No) Chronic Conditions Patient?s care impacted by: Other (Opiate use disorder) Discharge Plan Discharge Clinical Impression: Opiate use, Acute constipation Patient Disposition: Elopement Prescriptions: No Action clotrimazole-betamethasone 1-0.05 % cream 1 appl topical BID 14 Days Qty: 45 3RF Print Language: Vietnamese
--- NOTE | 2024-02-18 01:33 | PC.NURSE ---
Pt only able to tolerate approximately 500ml of soap suds enema. commode and wipes at the bedside. Pt tolerated well, awaiting results.
[2024-02-18 02:15] VITALS: BP 122/64; PULSE 57; RESP 16; TEMP 36.7; O2SAT 98
--- NOTE | 2024-02-18 02:44 | PC.NURSE ---
Pt requesting to leave, reporting the enema was not successful but he does not care and he wants to go home adn go to sleep. This RN asked if he would like to wait and see if doctor can order him something else and t/w could bring warm blanket. Pt said no, I want to go home . aware
[2024-02-18 03:24] VITALS: BP 00/00; PULSE 0; RESP 0; TEMP -17.7; TEMP 0; O2SAT 0
== END 2024-02-18 03:25 | disposition left against medical advice (07) ==
PROVIDERS: Emergency Provider Emergency Medicine Emergency Medical Services; PCP Physician Assistant Medical
DX: K59.00 Constipation, unspecified (principal); R14.0 Abdominal distension (gaseous); R10.9 Unspecified abdominal pain; F11.90 Opioid use, unspecified, uncomplicated; I10 Essential (primary) hypertension; Z86.19 Personal history of other infectious and parasitic diseases
CPT/HCPCS: 99283; 99284

== ENCOUNTER 2024-02-27 00:17 | Emergency (ER) | payer OTHER, SELFPAY ==
--- NOTE | ~2024-02-27 | XR_ITS ---
EXAMINATION: XR ABDOMEN KUB CLINICAL INDICATION: Pain. COMPARISON: Abdominal radiograph 11/04/2023. TECHNIQUE: AP view of the abdomen. FINDINGS: Visualized lung bases are clear. Scattered bowel gas is noted in nondistended small and large bowel segments. No gross free intraperitoneal gas visualized. There are dystrophic calcifications noted. No definitive urolithiasis visualized. No skeletal abnormalities identified. XR/XR KUB IMPRESSION: Normal abdominal radiographs. Normal bowel gas pattern. Electronically signed by: Ken Richmond MD 02/27/2024 01:32 AM EDT
[2024-02-27 00:20] VITALS: BP 156/88; PULSE 123; RESP 18; TEMP 36.6; O2SAT 100; BMI 29.2
[2024-02-27 00:46] LABS: MANUAL DIFF FLAG NO
--- NOTE | 2024-02-27 00:46 | MHC.EDTECH ---
Patient refused LAB ENGINEER swab in triage
[2024-02-27 00:47] LABS: Basophils Absolute Auto 0.1 X10*3/uL (0.0-0.2); Basophils Percent Auto 0.5 % (0-2); Eosinophils Absolute Auto 0.1 X10*3/uL (0.0-0.4); Eosinophils Percent Auto 0.5 % (0-4); Hematocrit 47.4 % (42.0-52.0); Hemoglobin 16.3 g/dl (14.0-18.0); Imm Gran Abs Auto 0.04 X10*3/uL (0.00-0.03); Imm Gran Pct Auto 0.3 % (0.0-0.4); Lymphocytes Absolute Auto 2.9 X10*3/uL (1.2-4.9); Lymphocytes Percent Auto 23.2 % (20-40); Mean Corpuscular HGB Conc 34.4 g/dl (31.0-36.0); Mean Corpuscular Hemoglobin 29.6 pg (27.0-33.0); Mean Corpuscular Volume 86.2 fL (80.0-98.0); Mean Platelet Volume 9.8 fL (9.4-12.4); Monocytes Absolute Auto 0.8 X10*3/uL (0.1-1.2); Monocytes Percent Auto 6.1 % (2-11); Neutrophils Absolute Auto 8.5 x10*3/uL (2.0-8.3); Neutrophils Percent Auto 69.4 % (45-73); Platelet Count 256 X10*3/uL (160-400); Red Cell Distribution Width 12.5 % (11.0-16.0); White Blood Count 12.3 X10*3/uL (4.8-10.8)
--- NOTE | 2024-02-27 01:24 | ED.ABDPAIN ---
HPI - Abdominal Pain General Chief Complaint: Abdominal Pain Stated Complaint: unable to defecate approx. 2 weeks Time Seen by Provider: 02/27/24 00:57 Source: patient Limitations: no limitations History of Present Illness ED Provider: Elissa Nash PA-C HPI narrative: 33-year-old male with a history of heroin abuse, chronic constipation, presents with constipation. Patient states he has not had a true bowel movement in 2 weeks. Associated abdominal discomfort and nausea at times. Denies abdominal distention or inability to pass flatus. Patient states he was seen here in the ER, had a soapsuds enema, his symptoms are not alleviated. Patient uses Colace twice a day. Related Data Previous Rx's ?Medication ?Instructions ?Recorded clotrimazole-betamethasone 1 1 appl topical BID 14 days #45 11/12/23 %-0.05 % topical cream grams Allergies Allergy/AdvReac Type Severity Reaction Status Date / Time No Known Allergies Allergy Verified 02/27/24 00:26 [No Known Allergies*] Review of Systems Review of Systems Yes all other systems are reviewed and are negative Constitutional: Denies fatigue and Denies fever(s) Cardiovascular: Denies chest pain and Denies dyspnea Respiratory: Denies cough and Denies dyspnea Gastrointestinal: Reports abdominal pain, Reports constipation, Reports nausea and Denies vomiting Endocrine: Denies fatigue PMFSH Past Medical History Attestation statement: The following information was validated with the patient. Medical History (Updated 02/27/24 @ 01:31 by STEFAN Mccurdy) Dyshidrotic eczema Rash of both feet Rash of foot Diarrhea Heroin use History of hepatitis C Hepatitis C Heart palpitations History of hypertension Surgical History H/O thumb surgery H/O facial injury Family History Family History (Updated 11/12/23 @ 11:04 by Deirdre Canada CMA) Father Skin cancer Mother Breast cancer Other FH: mental illness Substance use Social History Social History (Updated 11/12/23 @ 12:22 by Deirdre Canada CMA) Alcohol intake: current Alcohol intake frequency: a few times a month Patient Tobacco Use Status: Current everyday Tobacco user Tobacco use type: Cigarette Cigarette Packs Per Day: 1 Cigarettes Per Day: 20.0 e-Cigarette/Vaping Use: Never Used Second Hand Smoke Exposure: No Substance Use Type: Heroin Advance Directives: No service: Yes Current occupational status: unemployed Current occupation: right hand dominant Cognitive needs: No Hearing needs: No Vision needs: No Physical Exam ED Vital Signs: Vital Signs - 24 hr 02/27/24 00:20 Temperature 97.8 F Pulse Rate 123 H Respiratory Rate 18 Blood Pressure 156/88 H Pulse Oximetry 100 Oxygen Delivery Method Room Air BMI result Body Mass Index 29.2 Const Other: Alert Orientation/consciousness: patient oriented x3 Resp Other: Nonlabored respiration Cardio Other: Normal peripheral perfusion GI Other: Abdomen is soft, nondistended, nontender no guard, deferred rectal exam as the patient performed his own rectal exam to rule out impaction Skin Other: Warm dry no rash Neuro General: patient oriented x3, no focal motor deficits and CN's II-XI intact bilaterally Psych Other: Cooperative, anxious Medical Decision Making Medical Decision Making MDM Narrative: 33-year-old male with a history of heroin abuse, chronic constipation, presents with constipation. Patient states he has not had a true bowel movement in 2 weeks. Associated abdominal discomfort and nausea at times. Denies abdominal distention or inability to pass flatus. Patient states he was seen here in the ER, had a soapsuds enema, his symptoms are not alleviated. Patient uses Colace twice a day. Problem: Constipation and heroin abuse History: Per patient I have considered the following differential diagnoses: Fecal impaction, constipation, obstipation, bowel obstruction Plan: Patient is constipated without obstructive symptoms, we will obtain a KUB. I have independently reviewed the following tests: KUB: Significant constipation I discussed at length with the patient that he essentially needs to go home and perform a bowel prep with MiraLax, he understands, he does not want to wait for the benefit of his discharge instructions. I told him to mix the powder with liquid and drank it every 30 minutes to an hour until he begins having large volume bowel movements. I told him he should take the Colace twice a day instead of once a day. I told him he needs to stay on a bowel regimen to help prevent further episodes Lab Data 02/27/24 00:42 Labs: Lab Results 02/27/24 Range/Units 00:42 WBC 12.3 H (4.8-10.8) X10*3/uL RBC 5.50 (4.60-5.80) X10*6/uL Hgb 16.3 (14.0-18.0) g/dl Hct 47.4 (42.0-52.0) % MCV 86.2 (80.0-98.0) fL MCH 29.6 (27.0-33.0) pg MCHC 34.4 (31.0-36.0) g/dl RDW 12.5 (11.0-16.0) % Plt Count 256 (160-400) X10*3/uL MPV 9.8 (9.4-12.4) fL Immature Gran % (Auto) 0.3 (0.0-0.4) % Neut % (Auto) 69.4 (45-73) % Lymph % (Auto) 23.2 (20-40) % Esmeralda % (Auto) 6.1 (2-11) % Eos % (Auto) 0.5 (0-4) % Baso % (Auto) 0.5 (0-2) % Lymph # (Auto) 2.9 (1.2-4.9) X10*3/uL Esmeralda # (Auto) 0.8 (0.1-1.2) X10*3/uL Eos # (Auto) 0.1 (0.0-0.4) X10*3/uL Baso # (Auto) 0.1 (0.0-0.2) X10*3/uL Abs Immat Gran (auto) 0.04 H (0.00-0.03) X10*3/uL Absolute Neuts (auto) 8.5 H (2.0-8.3) x10*3/uL Absolute Nucleated RBC 0.000 (0.0-0.012) X10*3/uL Nucleated RBC % (auto) 0.0 (0.0-0.2) /100WBC Discharge Plan Discharge Clinical Impression: Constipation Patient Disposition: Home, Self-Care Prescriptions: No Action clotrimazole-betamethasone 1-0.05 % cream 1 appl topical BID 14 Days Qty: 45 3RF Print Language: Citizen Of [place]
[2024-02-27 01:39] VITALS: BP 0/0; PULSE 0; RESP 16; TEMP -17.7; TEMP 0; O2SAT 0
== END 2024-02-27 01:40 | disposition home or self-care (01) ==
PROVIDERS: Emergency Provider Emergency Medicine
DX: K59.00 Constipation, unspecified (principal); F17.210 Nicotine dependence, cigarettes, uncomplicated; F11.10 Opioid abuse, uncomplicated; Z79.899 Other long term (current) drug therapy
CPT/HCPCS: 74018; 85025; 99282; 99283

== ENCOUNTER 2024-05-16 14:02 | Outpatient (AMB) | payer OTHER, SELFPAY ==
--- NOTE | 2024-05-16 14:13 | MHC.PC.OV ---
Vital Signs 05/16/24 14:19 Height 5 ft 8 in Weight 177 lb 8 oz BMI 27.0 BP 136/84 Blood Pressure Location Rt brachial Position Sitting Pulse 131 H Pulse Source Pulse Oximeter Pulse Oximetry (%) 96 Oxygen Delivery Method Room Air Intake Visit Reasons: pain in arm for 3 weeks Intake Note: Left arm pain for one month. Believes there is a blood clot in the left arm. Was experiencing chest pain and sob last month. 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 Concerned given tooth infection and heroin (snorts) use He also has had a 3 week history of pain in the left distal shoulder and upper arm. He was having moderate to severe neck pain at the outset. Denies rash. Not using IV heroin. Denies fevers. ROS see HPI PHYSICAL EXAM: GENERAL: Alert and oriented x 3. NAD EYES: EOMI. Anicteric. HENT: Moist mucous membranes. No scleral icterus. No cervical lymphadenopathy. LUNGS: Clear to auscultation bilaterally. CARDIOVASCULAR: tachycardic. slight diastolic murmur ABDOMEN: Soft, non-tender +bs EXTREMITIES: No edema. Non-tender. SKIN: No rashes or lesions. Warm. NEUROLOGIC: No focal neurological deficits. CN II-XII grossly intact PSYCHIATRIC: Cooperative. Appropriate mood and affect [facility] Medical History (Updated 05/16/24 @ 14:33 by An Deluca MD) Dyshidrotic eczema Rash of both feet Rash of foot Diarrhea Heroin use History of hepatitis C Hepatitis C Heart palpitations History of hypertension Surgical History H/O thumb surgery H/O facial injury Family History (Updated 11/12/23 @ 11:04 by Deirdre Canada CMA) Father Skin cancer Mother Breast cancer Other FH: mental illness Substance use Social History (Updated 11/12/23 @ 12:22 by Deirdre Canada CMA) Alcohol intake: current Alcohol intake frequency: a few times a month Patient Tobacco Use Status: Current everyday Tobacco user Tobacco use type: Cigarette Cigarette Packs Per Day: 1 Cigarettes Per Day: 20.0 e-Cigarette/Vaping Use: Never Used Second Hand Smoke Exposure: No Substance Use Type: Heroin service: Yes Current occupational status: unemployed Current occupation: right hand dominant Cognitive needs: No Hearing needs: No Vision needs: No Questionnaire PHQ-9 Over the last 2 weeks, how often have you been bothered by any of the following problems? 1. Little interest or pleasure in doing things: several days 2. Feeling down, depressed, or hopeless: several days Source: Developed by Drs. Isaac Hanley, Elizabeth Nolasco, Arpit Vale and colleagues, with an educational kimberlee from [employer]. Thrive Questionnaire Date Thrive assessed: 11/12/23 I am a: Patient What is your living situation today?: I have a steady place to live Within the past 12 months, did the food you bought not last and you didn't have the money to get more?: Sometimes True Within the past 12 months, did you worry whether your food would run out before you got money to buy more?: Sometimes True Do you have trouble paying for medicines?: No Do you have trouble getting transportation to medical appointments?: No Do you have trouble paying your heating and electricity bill?: No Do you have trouble taking care of your child, family member or friend?: No Do you have trouble with day-to-day activities such as bathing, preparing meals, shopping, managing finances, etc.?: No Are you currently unemployed and looking for a job?: No Are you interested in more education?: No Please select the resources that you would like help with: None Currently or been in a relationship where the following occur: No concerns reported THRIVE Score: 2 AUDIT C Alcohol Use Questionnaire (AUDIT-C) 1. How often do you have a drink containing alcohol?: Never Total Score: 0 ADDIS-7 AMB Questionnaire ADDIS-7 Date ADDIS - 7 assessed: 11/12/23 Feeling nervous, anxious, or on edge: 1 = Several days Not being able to stop or control worryin = Several days Worrying too much about different things: 1 = Several days Trouble relaxin = Several days Being so restless that it is hard to sit still: 1 = Several days Becoming easily annoyed or irritable: 1 = Several days Feeling afraid as if something awful might happen: 1 = Several days Total ADDIS-7 score (0-4 normal; 5-9 mild; 10-14 moderate; 15-21 severe): 7 Source: Developed by Drs. Isaac Hanley, Elizabeth Nolasco, Arpit Vale and colleagues, with an educational [email or web address] from [employer]. Physical exam (Primary Care) Vital Signs: Last Vital Signs Pulse 131 H 05/16/24 14:19 BP 136/84 05/16/24 14:19 Pulse Ox 96 05/16/24 14:19 Oxygen Delivery Method Room Air 05/16/24 14:19 BMI result Body Mass Index 27.0 Tobacco/Smoking Status: Tobacco use Status Tobacco use date assessed 11/12/23 05/16/24 14:15 Patient Tobacco Use Status Current everyday Tobacco 05/16/24 14:15 Tobacco use type Cigarette 05/16/24 14:15 e-Cigarette/Vaping Use Never Used 05/16/24 14:15 Thrive Assessment: Date of Thrive Assessment Date Thrive assessed 11/12/23 05/16/24 14:15 Currently or been in a relationship where the following occur: No concerns reported Coding Level of Care Code Est Pt Level 4 (28487) Complex EM visit Add On G2211 Diagnoses Murmur R01.1 Left arm pain M79.602 Assessment & Plan Assessment & Plan (1) Murmur: Code(s): R01.1 - Cardiac murmur, unspecified Category: Medical Plan: slight murmur with tachycardia though does endorse white coat hypertension 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 No concern for superficial thrombophlebitis or DVT Orders: Orders ECG 12 lead EKG 05/16/24 R00.2 - Palpitations, R01.1 - Cardiac murmur, unspecified Complete Blood Count Auto Diff 05/16/24 M79.602 - Pain in left arm, R00.2 - Palpitations, R01.1 - Cardiac murmur, unspecified Basic Metabolic Panel 05/16/24 M79.602 - Pain in left arm, R00.2 - Palpitations, R01.1 - Cardiac murmur, unspecified Troponin-I High Sensitivity 05/16/24 M79.602 - Pain in left arm, R00.2 - Palpitations, R01.1 - Cardiac murmur, unspecified CA echo transthoracic complete 05/16/24 R00.2 - Palpitations, R01.1 - Cardiac murmur, unspecified C Reactive Protein 05/16/24 M79.602 - Pain in left arm, R00.2 - Palpitations, R01.1 - Cardiac murmur, unspecified XR cervical spine 3V 05/16/24 M54.2 - Cervicalgia, M79.602 - Pain in left arm
[2024-05-16 14:19] VITALS: BP 136/84; PULSE 131; O2SAT 96; BMI 27.0
== END 2024-05-16 15:18 | disposition home or self-care (01) ==
PROVIDERS: PCP Physician Assistant Medical; Visit Provider Internal Medicine
DX: R01.1 Cardiac murmur, unspecified (principal); M79.602 Pain in left arm

== ENCOUNTER → 2024-05-16 14:02 | Outpatient (BNVA) | payer OTHER, SELFPAY | PROVIDERS: PCP Physician Assistant Medical; Visit Provider Internal Medicine | DX: R01.1 Cardiac murmur, unspecified (principal); M79.602 Pain in left arm; R00.2 Palpitations; M54.2 Cervicalgia | CPT/HCPCS: 99212 ==

== ENCOUNTER 2024-05-16 15:21 | Outpatient (REF) | payer OTHER, SELFPAY ==
[2024-05-16 17:51] LABS: Anion Gap 10 (12-20); Blood Urea Nitrogen 12 mg/dL (9-16); C Reactive Protein 0.12 mg/dL (< or = 0.50); Calcium 9.3 mg/dL (8.4-10.2); Carbon Dioxide 26 mmol/L (22-29); Chloride 109 mmol/L (96-108); Cholesterol 193 mg/dL (<200); Estimated Glomerular Filt Rate > 60; Glucose Random 103 mg/dL (60-115); HDL Cholesterol 30 mg/dL (>40); LDL Cholesterol Calculated 95 mg/dL (<100); Potassium 3.5 mmol/L (3.3-5.1); Sodium 141 mmol/L (135-145); Triglycerides 341 mg/dL (<150)
[2024-05-16 17:58] LABS: TSH reflex Free T4 0.14 uIU/mL (0.32-4.0)
[2024-05-16 18:44] LABS: Troponin-I High Sensitivity < 2.7 ng/L (<3.5-35.0)
[2024-05-16 18:46] LABS: Free T4 (Free Thyroxine) 1.02 ng/dL (0.71-1.85)
[2024-05-17 19:39] LABS: HCV Log PCR <1.18 NOT DETECTED Log IU/mL (NOT DETECTED); HepC Viral Load <15 NOT DETECTED IU/mL (NOT DETECTED)
== END 2024-05-16 15:22 | disposition home or self-care (01) ==
LOC: HO.WFDLDS 15:21
PROVIDERS: Referring Provider Physician Assistant Medical; Visit Provider Internal Medicine
DX: Z13.6 Encounter for screening for cardiovascular disorders (principal); R10.30 Lower abdominal pain, unspecified; E66.9 Obesity, unspecified; Z86.19 Personal history of other infectious and parasitic diseases; R00.2 Palpitations; R01.1 Cardiac murmur, unspecified; M79.602 Pain in left arm
CPT/HCPCS: 36415; 80048; 80061; 84439; 84443; 84484; 86140; 87522

== ENCOUNTER → 2024-05-19 10:08 | Outpatient (REF) | payer OTHER, SELFPAY ==
--- NOTE | 2024-05-19 10:14 | ECG_ITS ---
Test Reason : NEW MURMUR Blood Pressure : */* mmHG Vent. Rate : 84 BPM Atrial Rate : 84 BPM P-R Int : 138 ms QRS Dur : 92 ms QT Int : 354 ms P-R-T Axes : 67 35 9 degrees QTcB Int : 418 ms Normal sinus rhythm Normal ECG When compared with ECG of 22-Feb-2023 02:12, No significant change was found Referred By: An Deluca Electronically Signed By: SATHISH PERRY MD
--- NOTE | 2024-05-19 10:14 | CA_ITS ---
Transthoracic Echocardiogram Patient (Last, First, Middle): Alexei Bingham, Gender: Male Date of : 1990 Age: 33 Procedure Date: 05/19/2024 Procedure Type: Transthoracic Echocardiogram Location: OP Height: 172.72 cm Weight: 86.18 kg BSA: 2.00 m2 Heart Rate: 89 bpm BP: 140 / 80 mmHg Mobile Home Technician: KIT Referring MD: An Deluca MD Symptoms: R00.2 - Palpitations Study Quality: Adequate ECG Rhythm: Sinus Conclusions: - Normal left ventricular size, thickness, systolic function, and wall motion. The visually estimated ejection fraction is between 55-60%. Diastolic function is normal for age. - Normal right ventricular cavity size and systolic function. - No significant valvular or pericardial pathology. Findings Left Ventricle Normal left ventricular size, thickness, systolic function, and wall motion. The visually estimated ejection fraction is between 55-60%. Diastolic function is normal for age. Right Ventricle Normal right ventricular cavity size and systolic function. Atria Both atria are normal in size. Aortic Valve Normal aortic valve structure and function. There is no aortic valve stenosis. There is no aortic valve regurgitation. Mitral Valve Normal mitral valve structure and function. There is no mitral valve regurgitation. There is no mitral valve stenosis. Pulmonic Valve The pulmonic valve is likely normal. Tricuspid Valve Normal tricuspid valve structure. There is no tricuspid valve regurgitation. Tricuspid regurgitation envelope is inadequate for calculation of right ventricular systolic pressure. Normal right atrial pressure. Great Vessels All visible segments of the aorta are normal in size. The visualized portions of the pulmonary artery and branches are normal. Venous The inferior vena cava is normal in size and collapses greater than 50% with inspiration. Pericardium/Pleural There is no evidence of pericardial effusion. Prior Study Comparison No prior study available for comparison. Measurements 2D Linear Measurements IVSd: 0.88 0.6-0.9/0.6-1.0 cm LVIDd: 5.06 3.9-5.3/4.2-5.9 cm LVIDd Index: 2.53 2.4-3.2/2.2-3.1 cm/m2 LVIDs: 3.61 2.0-3.6 cm LVPWd: 0.89 0.7-1.1 cm LA Diam: 3.80 2.7-3.8/3.0-4.0 cm LAIDs Index: 1.90 1.5-2.3 cm/m2 LV Mass: 196.18 67-162/88-224 g LV Mass Index: 98.09 43-95/49-115 g/m2 LVOT Diam: 2.00 3.0+(-)1.3 cm 2D Systolic Function EF 4C: 58.40 >55% EF 2C: 52.10 >55% EF BiP: 55.30 >55% Mitral Valve MV Pk E: 0.91 MV PK A: 0.62 MV Decel Time: 170.00 E/A: 1.50 E'Lateral: 10.80 E'Medial: 7.72 E/E' Med: 11.80 E/E' Lat: 8.50 PHT: 50.00 MVA PHT: 4.40 Decel Iron: 5.37 Aortic Valve AoV Pk Rudolph: 1.46 AoV Mn Rudolph: 0.94 AoV VTI: 0.25 AoV Pk Grad: 9.00 Aov Mn Grad: 4.00 ARIA Cont.VTI: 2.74 LVOT LVOT Pk Rudolph: 1.21 LVOT Mn Rudolph: 0.85 LVOT VTI: 0.22 LVOT Pk Grad: 6.00 LVOT Mn Grad: 3.00 LVOT Diam: 2.00 LVOT Area: 3.14 Diastolic Function MV Pk E: 0.91 MV Pk A: 0.62 E/A: 1.50 E'Medial: 7.72 E/E' Med: 11.80 E' Laterial: 10.80 E/E' Lat: 8.50 Right Ventricle TAPSE (mm): 18.90 TVS' Rudolph: 10.60 Tricuspid Valve RA Press: 3.00 Great Vessels Aorta Sinus of Valsalva: 3.20 2.0-3.5 cm Ao Asc: 2.70 2.1-3.4 cm Pulmonary Valve PV Pk Rudolph: 0.94 Peak PV Grad: 4.00 Updated in Other Vendor System with Status of Final Wu Fofana MD electronically signed on 05/20/2024 2:18:48 PM with status of Final
== END ==
LOC: HO.CARD 10:08
PROVIDERS: PCP Internal Medicine; Visit Provider Internal Medicine
DX: R00.2 Palpitations (principal); R01.1 Cardiac murmur, unspecified
CPT/HCPCS: 93005; 93306

== ENCOUNTER → 2024-05-19 10:14 | Outpatient (BNV) | payer OTHER, SELFPAY | PROVIDERS: PCP Internal Medicine; Visit Provider Internal Medicine Cardiovascular Disease | DX: R01.1 Cardiac murmur, unspecified (principal) | CPT/HCPCS: 93010 ==

== ENCOUNTER 2024-07-07 08:54 | Outpatient (REF) | payer OTHER, SELFPAY ==
[2024-07-07 11:43] LABS: Free T4 (Free Thyroxine) 0.99 ng/dL (0.71-1.85); Thyroid Stimulating Hormone 0.75 uIU/mL (0.32-4.0)
[2024-07-08 08:23] LABS: Triiodothyronine T3 Total 107 ng/dL (76-181)
[2024-07-10 22:04] LABS: Thyroid Peroxidase Antibodies <1 IU/mL (<9)
[2024-07-12 19:53] LABS: Thyrotropin Receptor Antibody <1.00 IU/L (<=2.00)
[2024-07-13 13:58] LABS: Thyroid Stimulating Immunoglob <89 % baseline (<140)
== END 2024-07-07 08:55 | disposition home or self-care (01) ==
LOC: HO.LAB 08:54
PROVIDERS: PCP Internal Medicine; Referring Provider Physician Assistant Medical; Visit Provider Student in an Organized Health Care Education/Training Program
DX: E05.90 Thyrotoxicosis, unspecified without thyrotoxic crisis or storm (principal); R79.89 Other specified abnormal findings of blood chemistry
CPT/HCPCS: 36415; 83520; 84439; 84443; 84445; 84480; 86376; 99202

== ENCOUNTER 2024-07-07 08:54 | Outpatient (AMB) | payer OTHER, SELFPAY ==
--- NOTE | 2024-07-07 08:56 | MHC.OFFVIS ---
Vital Signs 07/07/24 09:00 Height 5 ft 9.06 in Weight 190 lb 7.67 oz BMI 28.1 BP 98/70 Blood Pressure Location Rt brachial Position Sitting Pulse 88 Pulse Source Pulse Oximeter Pulse Oximetry (%) 98 Oxygen Delivery Method Room Air Intake Visit Reasons: Thyrotoxicosis unspeci w/o thyrotoxic crisis/storm Intake Note: Patient present today for Thyrotoxicosis unspecified w/o thyro-toxic crisis/storm.Pt sates that for the past x2 months his left arm pain. Accompanied by: Self / Same As Patient Allergies No Known Allergies [No Known Allergies*] Allergy (Verified 07/07/24 08:59) Medication List - Last Reconciled 07/07/24 by Kierra Torres MD clotrimazole-betamethasone 1-0.05 % 1 appl topical BID 14 days HPI Comments Details: 33-year-old male here today for initial evaluation of subclinical hyperthyroidism. He has a history significant for substance use disorder, and snorts heroin. Labs from 05/16/2024 showed TSH low at 0.14, free T4 normal at 1.02. This was ordered by primary care physician when patient had presented to clinic complaining of left-sided chest pain and palpitations. He underwent cardiac evaluation with echocardiogram in May 2024 which was normal. early 20s thyroid was off sometimes , didnt require any medication Pain in left arm Intermittent palpitations when constipated with opioid use No tremors Loose stools for 3 months Last use today snorts heroin, trying to lower myself over one bag of heroin a day No history of heart disease No fragility fractures No preceding contrast exposure No preceding viral infection Weight going back to his baseline since February 2024, stable Patient currently denies heat or cold intolerance, hair loss, anxiety,, mood changes, low energy, changes in appearance of eyes or vision changes, tremors, increased diaphoresis or dry skin. ? Patient denies any difficulty swallowing, pain on swallowing or voice changes or difficulty breathing. Patient denies any history of childhood neck radiation. Denies having ever used lithium, amiodarone or biotin supplements. Patient denies any family history of thyroid cancer or thyroid disease. Smokes a pack a day. Alcohol : none Smokes marijuna also Claire Physical exam General: sitting comfortably in no acute distress HEENT: normocephalic/atraumatic, moist oral mucosa Neck: supple, symmetrical, no thyromegaly , Cardiac: normal heart sounds Pulm: normal breath sounds B/L, no added breath sounds Abd: not distended, no tenderness Extremities: no edema, no signs of myxedema Laboratory Tests 05/16/24 15:23 TSH 0.14 L Free T4 1.02 [facility], [facility] Medical History (Updated 07/07/24 @ 09:01 by Kierra Torres MD) Subclinical hyperthyroidism Elevated cholesterol with elevated triglycerides Low TSH level Dyshidrotic eczema Rash of both feet Rash of foot Diarrhea Heroin use History of hepatitis C Hepatitis C Heart palpitations History of hypertension Surgical History H/O thumb surgery H/O facial injury Family History (Reviewed 07/07/24 @ 09:00 by Darcie Lezama [facility] [address]) Father Skin cancer Mother Breast cancer Other FH: mental illness Substance use Social History (Updated 11/12/23 @ 12:22 by Deirdre Canada [facility]) Alcohol intake: current Alcohol intake frequency: a few times a month Patient Tobacco Use Status: Current everyday Tobacco user Tobacco use type: Cigarette Cigarette Packs Per Day: 1 Cigarettes Per Day: 20.0 e-Cigarette/Vaping Use: Never Used Second Hand Smoke Exposure: No Substance Use Type: Heroin service: Yes Current occupational status: unemployed Current occupation: right hand dominant Cognitive needs: No Hearing needs: No Vision needs: No Assessment & Plan Assessment & Plan (1) Low TSH level: Code(s): R79.89 - Other specified abnormal findings of blood chemistry Category: Medical Plan: See above (2) Subclinical hyperthyroidism: Code(s): E05.90 - Thyrotoxicosis, unspecified without thyrotoxic crisis or storm Category: Medical Plan: 33-year-old male here today for initial evaluation of subclinical hyperthyroidism. He has a history significant for substance use disorder, and snorts heroin. Labs from 05/16/2024 showed TSH low at 0.14, free T4 normal at 1.02. This was ordered by primary care physician when patient had presented to clinic complaining of left-sided chest pain and palpitations. He underwent cardiac evaluation with echocardiogram in May 2024 which was normal. He is not sure if he had any preceding viral illness but could have been thyroiditis. We will repeat labs to see if his labs still show persistent thyroid dysfunction. However since he does report that intermittently he has had thyroid dysfunction since he was younger, could possibly have underlying autoimmune thyroid disease/Graves disease. Given his TSH is quite a bit on the low side, and he does have intermittent palpitations, he might warrant treatment so I am going to also check his antibody levels. Today, I explained the patient's current thyroid status and potential implications of the lab results initially observed in May. We discussed possible causes, possible progression of the disorder, and outlined the steps needed for verification of current hormone status. I enlightened the patient regarding the relationship between thyroid dysfunction and symptoms experienced but clarified current arm pain unlikely to be thyroid-originating, suggesting working with primary care for musculoskeletal evaluation. We addressed the risks of continued opiate use, advising reassessment of his management strategy for potential discontinuation and consideration of physical therapy for his arm pain. The labs and follow-up were arranged to be convenient, with a detailed description of procedures for lab completion. Plan: -ordered TSH, free T4, total T3, TSI, TSH receptor and TPO antibodies -follow up in 3 weeks to discuss results Patient was informed and verbally consented to the use of an ambient scribe for clinic note documentation during this visit. Plan I spent 45 minutes in reviewing the record, seeing the patient and documenting in the medical record. Orders: Orders Triiodothyronine T3 Total Today E05.90 - Thyrotoxicosis, unspecified without thyrotoxic crisis or storm Thyroid Stimulating Immunoglob Today E05.90 - Thyrotoxicosis, unspecified without thyrotoxic crisis or storm Thyroid Stimulating Hormone Today E05.90 - Thyrotoxicosis, unspecified without thyrotoxic crisis or storm Free T4 (Free Thyroxine) Today E05.90 - Thyrotoxicosis, unspecified without thyrotoxic crisis or storm Thyroid Peroxidase Antibodies Today E05.90 - Thyrotoxicosis, unspecified without thyrotoxic crisis or storm Thyrotropin Receptor Antibody Today E05.90 - Thyrotoxicosis, unspecified without thyrotoxic crisis or storm Patient Instructions: Please do blood work today Follow up in 3 weeks to discuss results Coding Level of Care Code New Pt Level 4 (34945) Diagnoses Low TSH level R79.89 Subclinical hyperthyroidism E05.90 Time Spent (min) 45
[2024-07-07 09:00] VITALS: BP 98/70; PULSE 88; O2SAT 98; BMI 28.1
== END 2024-07-07 09:33 | disposition home or self-care (01) ==
PROVIDERS: PCP Internal Medicine; Visit Provider Student in an Organized Health Care Education/Training Program
DX: R79.89 Other specified abnormal findings of blood chemistry (principal); E05.90 Thyrotoxicosis, unspecified without thyrotoxic crisis or storm
CPT/HCPCS: 99204